=== PATIENT | male | born 2000 | race Hispanic/Latino ===

== ENCOUNTER 2024-03-08 21:23 | Emergency (ER) | payer BC ==
[2024-03-08] MEDS ORDERED: EPINEPHrine 1 MG/ML VIAL ONE (21:31)
[2024-03-08] MEDS ORDERED: methylPREDNISolone Sod Succ/PF 125 MG/2 ML VIAL ONE (21:31)
[2024-03-08] MEDS ORDERED: Famotidine/PF 20 mg/2ml Vial ONE (21:32)
== END 2024-03-09 00:50 | disposition home or self-care (01) ==
LOC: CSHERS 21:23
DX: T78.01XA Anaphylactic reaction due to peanuts, initial encounter (principal); R11.10 Vomiting, unspecified; J45.909 Unspecified asthma, uncomplicated; Z79.899 Other long term (current) drug therapy
CPT/HCPCS: 96372; 96374; 96375; J0171; J2930; S0028